=== PATIENT | female | born 1990 | race Two or more races ===

== ENCOUNTER 2021-03-15 11:36 | Emergency (ER) | payer OTHER ==
[~2021-03-15] VITALS: Ht 162.6 cm; Wt 67.3 kg
[2021-03-15 12:18] LABS: COVID AG,FIA SOURCE NASOPHARYNGEAL
[2021-03-15 13:12] VITALS: BP 116/88
== END 2021-03-15 13:20 | disposition home or self-care (01) ==
LOC: EMS 11:41
DX: J06.9 Acute upper respiratory infection, unspecified (principal); Z20.822 Contact with and (suspected) exposure to COVID-19
CPT/HCPCS: 87426; 99283